=== PATIENT | male | born 1980 | race Caucasian/White ===

== ENCOUNTER 2017-02-26 09:19 | Emergency (ER) | payer BC ==
[~2017-02-26] VITALS: Ht 188 cm; Wt 93.0 kg
[~2017-02-26 09:19] MED LIST: NOHOMEMEDS
[2017-02-26] MEDS ORDERED: PEN-VEE K,VEET500 MG PO (09:45)
[2017-02-26] MEDS ORDERED: NAPROXEN500 MG PO (09:45)
[2017-02-26 10:16] VITALS: BP 136/90
== END 2017-02-26 10:19 | disposition home or self-care (01) ==
LOC: EME 09:19
DX: K02.9 Dental caries, unspecified (principal); K08.89 Other specified disorders of teeth and supporting structures; Z91.040 Latex allergy status
CPT/HCPCS: 99281; 99283